=== PATIENT | male | born 2005 | race Asian ===

== ENCOUNTER 2024-07-28 17:40 | Inpatient (IN) ==
[2024-07-28] MEDS: Lactated Ringers SEPSIS* BAG 2,050 ML IV ONE (18:07)
[2024-07-28 18:23] LABS: ABS Lymphocytes 0.7 10^3/uL (1.0-4.8); ABS Monocytes 0.9 10^3/uL (0.0-1.1); ABS Neutrophils 7.7 10^3/uL (1.5-7.6); Eosinophil % 0.1 %; Hematocrit 43.3 % (38-53); Hemoglobin 14.7 g/dL (13.2-16.3); Lymphocyte % 7.2 %; Mean Corpuscular Hemoglobin 29.3 pg (27-33); Mean Corpuscular Hgb Conc 33.9 g/dL (31-36); Mean Corpuscular Volume 86.4 fL (80-97); Mean Platelet Volume 10.1 fL (7.5-11.2); Platelet Count 139 10^3/uL (150-450); Red Blood Count 5.01 10^6/uL (4.06-5.63); Red Cell Distribution Width 13.9 % (12-17); White Blood Count 9.2 10^3/uL (3.6-10.2)
[2024-07-28 18:34] LABS: Activated Partial Thrombo Time 31.2 seconds (26.0-38.0); INR 1.16 (0.85-1.14)
[2024-07-28 18:49] LABS: High Sens Troponin Baseline < 3 pg/mL (<20)
[2024-07-28] MEDS: Cefepime 2 GM in Dextrose 2 GM/50 ML BAG IV ONE (18:49)
[2024-07-28 19:24] LABS: ALT 10 U/L (7-52); AST 13 U/L (13-39); Albumin 4.7 g/dL (3.2-5.2); Albumin/Globulin Ratio 1.9 (1-3); Alkaline Phosphatase 70 U/L (35-149); Anion Gap 11 mmol/L (2-16); Blood Urea Nitrogen 13 mg/dL (6-24); C Reactive Protein 16.42 mg/L (<8.01); CO2 Carbon Dioxide 22 mmol/L (22-32); Calcium 9.5 mg/dL (8.6-10.3); Chloride 103 mmol/L (101-111); Creatinine, Serum 1.22 mg/dL (0.67-1.17); Globulin 2.5 g/dL (2-4); Glucose 90 mg/dL (70-100); Potassium 3.4 mmol/L (3.5-5.0); Sodium 136 mmol/L (135-145); Total Bilirubin 0.7 mg/dL (0.2-1.0); Total Protein 7.2 g/dL (6.4-8.9); eGFR CKD-EPI 86.5 (>60)
[2024-07-28 19:41] LABS: Urine Appearance Clear; Urine Bilirubin Negative (Negative); Urine Blood Negative (Negative); Urine Color Yellow; Urine Glucose Negative (Negative); Urine Ketones 1+ (Negative); Urine Nitrite Negative (Negative); Urine Protein Trace (Negative); Urine Specific Gravity 1.025 (1.002-1.030); Urine Urobilinogen Negative (Negative); Urine pH 8.5 (5.0-8.0)
[2024-07-28 20:13] LABS: High Sensitivity Troponin 1 Hr < 3 pg/mL (<20)
[2024-07-28 20:19] LABS: Erythrocyte Sed Rate 0 mm/Hr (0-14)
[2024-07-28] MEDS ORDERED: Sulfur Hexaflouride MICROSPHR 25 MG VIAL IV PRN (22:24)
[2024-07-28] MEDS: Enoxaparin 40 MG/0.4 ML SYR SUBCUT SCH (23:23)
[2024-07-28] MEDS ORDERED: Vancomycin per Pharmacy 1 EA NOTE FOLLOW UP SCH (23:45)
[2024-07-28 23:58] LABS: Magnesium 1.5 mg/dL (1.9-2.7)
[2024-07-28] MEDS: Vancomycin 1,250 MG in NS 0.9% 250 ml 250 ML IVPB ONE (23:58)
[2024-07-29] MEDS: Potassium EFFERVES 25 meq TAB PO ONE (00:02)
[2024-07-29 00:27] LABS: Rapid Strep Molecular Negative (Negative)
[2024-07-29] MEDS: Hydrocortisone INJ 100 MG/2ML 2 ML VIAL IV ONE (01:23)
[2024-07-29] MEDS: Magnesium Sulfate 2 gm BAG 2 GM/50 ML BAG IVPB ONE (01:23)
[2024-07-29] MEDS: Acetaminophen IV 1 GM/100ML 1,000 MG/100 ML BAG IV SCH (01:42)
[2024-07-29] MEDS: Magnesium Sulfate IV 1GM/100ML 1 GM/100 ML BAG IV ONE (02:12)
[2024-07-29] MEDS: Cefepime 2 GM in Dextrose 2 GM/50 ML BAG IV SCH (02:16)
[2024-07-29 04:29] LABS: ABS Lymphocytes 0.4 10^3/uL (1.0-4.8); ABS Monocytes 0.4 10^3/uL (0.0-1.1); ABS Neutrophils 6.8 10^3/uL (1.5-7.6); Hematocrit 39.4 % (38-53); Hemoglobin 13.1 g/dL (13.2-16.3); Lymphocyte % 5.2 %; Mean Corpuscular Hemoglobin 28.6 pg (27-33); Mean Corpuscular Hgb Conc 33.2 g/dL (31-36); Mean Corpuscular Volume 86.1 fL (80-97); Platelet Count 127 10^3/uL (150-450); Red Blood Count 4.58 10^6/uL (4.06-5.63); Red Cell Distribution Width 13.8 % (12-17); White Blood Count 7.6 10^3/uL (3.6-10.2)
[2024-07-29 04:49] LABS: Albumin 3.8 g/dL (3.2-5.2); Albumin/Globulin Ratio 1.7 (1-3); Calcium 8.2 mg/dL (8.6-10.3); Creatinine, Serum 1.1 mg/dL (0.67-1.17); Globulin 2.2 g/dL (2-4); Magnesium 2.6 mg/dL (1.9-2.7); Potassium 3.6 mmol/L (3.5-5.0); Total Bilirubin 0.5 mg/dL (0.2-1.0); eGFR CKD-EPI 97.9 (>60)
[2024-07-29] MEDS: Potassium Chlor 20 meq TAB.ER PO ONE (06:59)
[2024-07-29] MEDS: Vancomycin 1000 MG in NS 0.9% 250 ML IVPB SCH (09:05)
[2024-07-29] MEDS: Hydrocortisone INJ 100 MG/2ML 2 ML VIAL IV SCH (09:17)
[2024-07-29 10:13] LABS: C Reactive Protein 71.31 mg/L (<8.01)
[2024-07-29 15:12] VITALS: BP 112/59
[2024-07-29 16:32] LABS: Erythrocyte Sed Rate 5 mm/Hr (0-14)
[2024-07-30] MEDS ORDERED: Vancomycin Trough Check NOTE FOLLOW UP ONE (07:30)
[2024-08-02 15:50] LABS: EBV Capsid Ag IgG Ab Negative (Negative); EBV Capsid Ag IgM Ab Negative (Negative); Epstein-Barr Nuclear Antigen Negative (Negative)
== END 2024-07-29 18:33 | disposition home or self-care (01) | DRG 424 ==
LOC: ED 17:40 → EDHOLD 22:24 → ICU 23:48
PROVIDERS: ADMIT Internal Medicine Pulmonary Disease; ATTEND Internal Medicine Pulmonary Disease